=== PATIENT | male | born 1980 | race Caucasian/White ===

== ENCOUNTER 2018-11-09 10:05 | Emergency (ER) | payer SELFPAY ==
[~2018-11-09] VITALS: Ht 167.6 cm; Wt 91.3 kg
[2018-11-09 10:24] VITALS: Ht 167.6 cm; Wt 91.3 kg
[2018-11-09 12:11] VITALS: BP 117/73
== END 2018-11-09 12:11 | disposition home or self-care (01) ==
LOC: ED 10:05
DX: J18.9 Pneumonia, unspecified organism (principal)
CPT/HCPCS: 87804; Q0092